=== PATIENT | male | born 1945 | race Caucasian/White ===

== ENCOUNTER 2017-04-12 10:19 | Observation (INO) | payer MEDICARE ==
[~2017-04-12] VITALS: Ht 167.6 cm; Wt 59.1 kg
[2017-04-12] MEDS ORDERED: SODIUM CHLORIDE 0.9% 1,000 ML IV ONE (10:49)
[2017-04-12 10:56] VITALS: BP 122/74
[2017-04-12] MEDS ORDERED: CHOL2000 PO (11:22)
[2017-04-12] MEDS ORDERED: METO25TA35 PO (11:22)
[2017-04-12] MEDS ORDERED: CANA1TAB3 PO (11:22)
[2017-04-12] MEDS ORDERED: PIOG30TA4 PO (11:22)
[2017-04-12] MEDS ORDERED: LEVO75TA5 PO (11:22)
[2017-04-12] MEDS ORDERED: DULA0.75 SQ (11:22)
[2017-04-12] MEDS ORDERED: ENAL5TAB PO (11:22)
[2017-04-12] MEDS ORDERED: ASPI-496 PO (11:22)
[2017-04-12] MEDS ORDERED: INSU200I4 SQ (11:22)
[2017-04-12] MEDS ORDERED: ATOR40TA78 PO (11:22)
[2017-04-12] MEDS ORDERED: DUTA1CPM4 PO (11:22)
[2017-04-12 11:25] LABS: HEMATOCRIT 49.1 % (39.2-51.8); HEMOGLOBIN 16.4 g/dL (13.7-18.0); WHITE BLOOD COUNT 6.5 x10^3/uL (3.4-10)
[2017-04-12 11:37] LABS: BLOOD UREA NITROGEN 16 mg/dL (7-18)
[2017-04-12 13:45] VITALS: BP 108/70
[2017-04-12] MEDS ORDERED: TEMPLATE NON-FORMULARY MED. (Dulaglutide (Trulicity) 0.5 ML) SQ SCH (14:00)
[2017-04-12 20:40] VITALS: BP_SYST 126; BP_SYST 135; BP_DIAS 77; BP_DIAS 85
[2017-04-12] MEDS: ENALAPRIL 5MG TABLET PO SCH (20:45)
[2017-04-12] MEDS: METOPROLOL TARTRATE 25 MG TABLET PO SCH (20:45)
[2017-04-12] MEDS: TICAGRELOR 90 MG TABLET PO SCH (20:45)
[2017-04-12] MEDS: METFORMIN PO SCH (21:00)
[2017-04-12] MEDS: CANAGLIFLOZIN PO SCH (21:00)
[2017-04-12] MEDS ORDERED: ATORVASTATIN 40 MG TABLET PO SCH (21:00)
[2017-04-12] MEDS: [UNRECOGNIZED DRUG - OTHER] PO SCH (21:00)
[2017-04-13 01:33] VITALS: BP 112/70
[2017-04-13 07:15] VITALS: BP 110/69
[2017-04-13] MEDS ORDERED: TICA90TA PO (08:32)
[2017-04-13] MEDS: CANAGLIFLOZIN PO SCH (08:44)
[2017-04-13] MEDS: METFORMIN PO SCH (08:44)
[2017-04-13] MEDS: [UNRECOGNIZED DRUG - OTHER] PO SCH (08:44)
[2017-04-13] MEDS: ENALAPRIL 5MG TABLET PO SCH (08:45)
[2017-04-13] MEDS: TICAGRELOR 90 MG TABLET PO SCH (08:46)
[2017-04-13] MEDS: METOPROLOL TARTRATE 25 MG TABLET PO SCH (08:46)
[2017-04-13] MEDS ORDERED: ASPIRIN 81 MG TABLET EC PO SCH (09:00)
[2017-04-13] MEDS ORDERED: PIOGLITAZONE 15 MG TABLET PO SCH (09:00)
[2017-04-13] MEDS ORDERED: TAMSULOSIN 0.4 MG CAP.ER.24H PO SCH (09:00)
[2017-04-13] MEDS ORDERED: CHOLECALCIFEROL 1,000 UNIT TABLET PO SCH (09:00)
[2017-04-13] MEDS ORDERED: LEVOTHYROXINE 75 MCG TABLET PO SCH (09:00)
== END 2017-04-13 09:57 | disposition home or self-care (01) ==
LOC: CACL 10:19 → 5SO 13:40 → CACL 14:26 → 5SO 20:11 → DCLOUNGE 04-13 09:26
PROVIDERS: ADMIT Internal Medicine Cardiovascular Disease; ATTEND Internal Medicine Cardiovascular Disease
DX: I25.10 Atherosclerotic heart disease of native coronary artery without angina pectoris (principal); I50.9 Heart failure, unspecified; I10 Essential (primary) hypertension; I35.0 Nonrheumatic aortic (valve) stenosis; E78.00 Pure hypercholesterolemia, unspecified; E11.9 Type 2 diabetes mellitus without complications
CPT/HCPCS: 36415; 80048; 85025; 93454; 93571; 99156; 99157; C1725; C1769; C1874; C1887; C1894; C9600; G0378; J0583; J1644; J2250; J3010; J3490; Q9967